=== PATIENT | female | born 1945 | race Caucasian/White ===

== ENCOUNTER 2017-01-19 15:13 | Emergency (ER) | payer OTHER, BC ==
[~2017-01-19] VITALS: Ht 149.9 cm; Wt 69.9 kg
[~2017-01-19 15:13] MED LIST: ACTIVELLA 0.5-1 EACH PO; ASPIRIN E.C.81 M1 PO; CALCIUM CARBON600 M1 PO; DEXILANT60 MG PO; EFFEXOR XR75 MG PO; MARTINIC1 EACH PO; SIMVASTATIN80 M1 PO; VITAMIN D1000 INTUN PO; Vitamin-E PO
[2017-01-19 15:29] VITALS: BP 188/72
[2017-01-19 16:03] LABS: HEMATOCRIT 47.9 % (36.0-46.0); MCH 31.4 PG (29.0-34.0); MCHC 33.4 G/DL (30.0-36.0); MCV 94.1 FL (83-99); PLATELET COUNT 284 K/uL (156-360); RBC DIS.WIDTH-CV 11.9 % (11.8-14.6); RBC DIS.WIDTH-SD 41.6 % (39-53); RED BLOOD COUNT 5.09 M/uL (3.80-5.20); WHITE BLOOD COUNT 9.7 K/uL (4.1-10.2)
[2017-01-19 16:13] LABS: CHLORIDE 110 mEq/L (99-109); POTASSIUM 4.1 mEq/L (3.7-5.4); SODIUM 141 mEq/L (136-147)
[2017-01-19 16:15] LABS: GLUCOSE 98 mg/dL (70-99)
[2017-01-19 16:16] LABS: ANION GAP 8 MEQ/L (2-14)
[2017-01-19 16:17] LABS: TOTAL BILIRUBIN 0.6 mg/dL (0.0-1.0)
[2017-01-19 16:19] LABS: ALKALINE PHOSPHATASE 125 IU/L (3-129); GFR ESTIMATE (CALCULATED) > 59 mL/min/
[2017-01-19 16:20] LABS: UREA NITROGEN (BUN) 17 mg/dL (9-23)
== END 2017-01-19 18:40 | disposition left against medical advice (07) ==
LOC: EME 15:13
DX: R10.31 Right lower quadrant pain (principal); R11.0 Nausea; R19.7 Diarrhea, unspecified; Z53.21 Procedure and treatment not carried out due to patient leaving prior to being seen by health care provider
CPT/HCPCS: 80053; 81003; 85027

== ENCOUNTER 2018-01-12 13:27 | Emergency (ER) | payer OTHER, BC ==
[~2018-01-12] VITALS: Ht 144.8 cm; Wt 70.9 kg
[2018-01-12 14:41] LABS: HEMATOCRIT 45.8 % (36.0-46.0); HEMOGLOBIN 15.8 G/DL (11.9-15.5); MCH 32.2 PG (29.0-34.0); MCHC 34.5 G/DL (30.0-36.0); MCV 93.3 FL (83-99); PLATELET COUNT 283 K/uL (156-360); RBC DIS.WIDTH-CV 11.9 % (11.8-14.6); RBC DIS.WIDTH-SD 40.7 % (39-53); RED BLOOD COUNT 4.91 M/uL (3.80-5.20); WHITE BLOOD COUNT 8.5 K/uL (4.1-10.2)
[2018-01-12 15:04] LABS: TROP-I INTERPRETATION NEGATIVE; TROPONIN-I < 0.01 ng/mL (0.0-0.30)
[2018-01-12 15:26] LABS: ALBUMIN 4.1 g/dL (3.2-4.8); CHLORIDE 113 mEq/L (99-109); POTASSIUM 4.3 mEq/L (3.7-5.4); SODIUM 142 mEq/L (136-147)
[2018-01-12 15:28] LABS: GLUCOSE 95 mg/dL (70-99); TOTAL PROTEIN 6.9 g/dL (6.4-8.3)
[2018-01-12 15:30] LABS: TOTAL BILIRUBIN 0.6 mg/dL (0.0-1.0)
[2018-01-12 15:32] LABS: ALKALINE PHOSPHATASE 112 IU/L (3-129); CREATININE 0.7 mg/dL (0.6-1.3); GFR ESTIMATE (CALCULATED) > 59 mL/min/
[2018-01-12 15:33] LABS: UREA NITROGEN (BUN) 12 mg/dL (9-23)
[2018-01-12 15:34] LABS: AST (GOT) 27 IU/L (2-34)
[2018-01-12 15:35] LABS: ALT (GPT) 27 IU/L (3-49)
[2018-01-12 15:57] LABS: APPEARANCE SL.HAZY ((CLEAR)); BILIRUBIN NEGATIVE; BLOOD NEGATIVE; COLOR YELLOW ((YELLOW)); GLUCOSE (STRIP) NEGATIVE; KETONES NEGATIVE; LEUKOCYTES MODERATE; NITRITE NEGATIVE; PROTEIN (STRIP) NEGATIVE; SPECIFIC GRAVITY 1.016 (1.000-1.030); UROBILINOGEN 0.2 MG/DL (0.2-1.0)
[2018-01-12 16:25] LABS: BACTERIA RARE /HPF; EPITHELIAL CELLS 2+ /HPF; MUCUS TRACE /LPF; RED BLOOD CELLS 0-5 /HPF (0-5); UCUL ADDED? YES
[2018-01-12 19:16] LABS: TROP-I INTERPRETATION NEGATIVE; TROPONIN-I < 0.01 ng/mL (0.0-0.30)
[2018-01-12 19:58] VITALS: BP 147/73
== END 2018-01-12 19:59 | disposition home or self-care (01) ==
LOC: EME 13:27
PROVIDERS: Nurse Practitioner Family
DX: R10.13 Epigastric pain (principal); E78.5 Hyperlipidemia, unspecified; Z90.49 Acquired absence of other specified parts of digestive tract
CPT/HCPCS: 71046; 74177; 80053; 81003; 84484; 85027; 87086; 93005; 99281; 99284

== ENCOUNTER → 2018-03-30 | Outpatient (CLI) | payer OTHER, BC ==
[~2018-03-30] MED LIST changes: +ASPIRIN81 M2 PO; +PRAVACHOL40 MG PO; +VITAMIN B-12250 MCG PO; +VITAMIN E400 UNIT PO
== END | disposition home or self-care (01) ==
LOC: NUC 09:37
DX: Z90.49 Acquired absence of other specified parts of digestive tract (principal)
CPT/HCPCS: 78227; A9510; J2805

== ENCOUNTER → 2018-04-01 | Outpatient (CLI) | payer OTHER, BC ==
[~2018-04-01] VITALS: Ht 149.9 cm; Wt 69.9 kg
== END | disposition home or self-care (01) ==
LOC: AMB 09:00
PROVIDERS: Internal Medicine Gastroenterology
DX: K83.8 Other specified diseases of biliary tract (principal); R93.3 Abnormal findings on diagnostic imaging of other parts of digestive tract; R10.11 Right upper quadrant pain; R10.13 Epigastric pain; R10.31 Right lower quadrant pain; R94.5 Abnormal results of liver function studies; K21.9 Gastro-esophageal reflux disease without esophagitis; Z86.010 Personal history of colon polyps; Z90.49 Acquired absence of other specified parts of digestive tract; Z82.0 Family history of epilepsy and other diseases of the nervous system; Z79.82 Long term (current) use of aspirin
CPT/HCPCS: 82948; C1726; J0585; J3010